=== PATIENT | male | born 1950 | race Caucasian/White ===

== ENCOUNTER 2017-05-31 17:10 | Emergency (ER) | payer MEDICARE, OTHER ==
[2017-05-31 17:19] VITALS: BP 118/70
--- NOTE | 2017-05-31 17:46 | EDM.PDOC ---
ED HPI GENERAL MEDICAL PROBLEM - General Chief Complaint: Syncope Stated Complaint: [facility] Time Seen by Provider: 05/31/17 17:27 Source of Information: Reports: Patient History Limitations: Reports: No Limitations - History of Present Illness INITIAL COMMENTS - FREE TEXT/NARRATIVE: Patient is a 67-year-old male with a history of coronary artery disease with CABG 4 in 2012 who presents to the ED with recent complaint of dizziness, feeling warm, and presyncopal episode. Patient states he was outside in [place] most of the afternoon and attended a concernt later in the afternoon. Patient was sitting in the bleachers for approximate one hour prior to a concert. Patient states he started feeling warm thus walked up the stairs when he became dizzy and almost passed out. Once he layed down patient was found to be diaphoretic with no chest pain or shortness of breath. EMS was contacted and IV was initiated with IV bolus of NS. Upon arrival to the ED patient is asymptomatic. He is questioning if he was dehydrated and became overheated. Again at no time has he had chest pain or shortness of breath, palpitations, change in vision, headache, N/T to extremities, or weakness or any additional complaints. Past medical history: Coronary disease, MD, hypertension, hyponatremia, vitamin B-12 deficiency Current medications include Crestor, Zetia, baby aspirin, fish oil, vitamin B12 , Norvasc, and Zestril - Related Data Allergies Allergy/AdvReac Type Severity Reaction Status Date / Time Penicillins Allergy Cannot Verified 05/31/17 17:19 Remember Home Meds: Home Meds Aspirin 81 mg PO BRK 05/31/17 [History] Cyanocobalamin (Vitamin B-12) [Vitamin B-12] 2,000 mcg PO DAILY 05/31/17 [ History] Ezetimibe [Zetia] 10 mg PO DAILY 05/31/17 [History] Fish Oil/[place]-3 Fatty Acids [Fish Oil 1,000 MG] 1 cap PO DAILY 05/31/17 [ History] amLODIPine [Norvasc] 10 mg PO BEDTIME 05/31/17 [History] amLODIPine/Benazepril [Lotrel 5-20 MG] 1 cap PO DAILY 05/31/17 [History] Past Medical History Cardiovascular History: Reports: Bypass, Hypertension Other Cardiovascular History: quad bypass 4 years ago Musculoskeletal History: Reports: Back Pain, Chronic - Past Surgical History Cardiovascular Surgical History: Reports: Coronary Artery Bypass Musculoskeletal Surgical History: Reports: Other (See Below) Other Musculoskeletal Surgeries/Procedures:: cervical spine fusion Social & Family History - Tobacco Use Smoking Status *Q: Former Smoker Used Tobacco, but Quit: Yes Month Tobacco Last Used: 10 years ago Second Hand Smoke Exposure: No - Caffeine Use Caffeine Use: Reports: Coffee - Recreational Drug Use Recreational Drug Use: No ED ROS GENERAL - Review of Systems Review Of Systems: See Below Constitutional: Reports: Malaise, Weakness, Fatigue, Diaphoresis, Decreased Appetite. Denies: Fever, Chills Respiratory: Denies: Shortness of Breath, Cough, Sputum Cardiovascular: Denies: Chest Pain, Dyspnea on Exertion, Lightheadedness, Palpitations, Syncope GI/Abdominal: Denies: Abdominal Pain, Distension, Nausea, Vomiting : Denies: Dysuria Musculoskeletal: Denies: Neck Pain, Shoulder Pain, Arm Pain, Back Pain Skin: Reports: No Symptoms Neurological: Reports: Dizziness. Denies: Confusion, Headache, Numbness, Pre- Existing Deficit, Syncope, Tingling, Difficulty Walking, Weakness, Gait Disturbance ED EXAM, GENERAL - Physical Exam Exam: See Below Exam Limited By: No Limitations General Appearance: Alert, WD/WN, No Apparent Distress Eye Exam: Bilateral Eye: EOMI, PERRL Ears: Hearing Grossly Normal Nose: Normal Inspection Throat/Mouth: Normal Voice, No Airway Compromise Neck: Normal Inspection, Supple Respiratory/Chest: No Respiratory Distress, Lungs Clear, Normal Breath Sounds, No Accessory Muscle Use, Chest Non-Tender Cardiovascular: Normal Peripheral Pulses, Regular Rate, Rhythm, No Murmur, Other (STERNOTOMY scar from previous CABG 2012.) Peripheral Pulses: 2+: Radial (L), Radial (R) GI/Abdominal: Normal Bowel Sounds, Soft, Non-Tender, No Organomegaly, No Distention, No Abnormal Bruit, No Mass Extremities: Normal Inspection, Normal Range of Motion, Non-Tender, No Pedal Edema, Normal Capillary Refill Neurological: Alert, Oriented, CN II-XII Intact, Normal Cognition, No Motor/ Sensory Deficits Psychiatric: Normal Affect, Normal Mood Skin Exam: Warm, Dry, Intact, Normal Color, No Rash Course - Vital Signs Last Recorded V/S: Last Vital Signs Temp 99 F 05/31/17 17:16 Pulse 73 05/31/17 17:16 Resp 17 05/31/17 17:16 BP 118/70 05/31/17 17:16 Pulse Ox 94 L 05/31/17 17:16 Orthostatic Blood Pressure [ 119/75 Standing] Orthostatic Blood Pressure [ 122/70 Sitting] Orthostatic Blood Pressure [ 110/78 Supine] - Orders/Labs/Meds Orders: Active Orders 24 hr Category Date Time Status EKG Documentation Completion [RC] STAT Care 05/31/17 17:40 Active Orthostatic Vital Signs [RC] ASDIRECTED Care 05/31/17 17:42 Active CXR [Chest 1V Frontal] [CR] Stat Exams 05/31/17 17:41 Taken Labs: Laboratory Tests 05/31/17 05/31/17 05/31/17 Range/Units 17:55 17:55 17:55 WBC 13.17 H (4.23-9.07) K/mm3 RBC 4.40 L (4.63-6.08) M/mm3 Hgb 13.8 (13.7-17.5) gm/L Hct 40.7 (40.1-51.0) % MCV 92.5 H (79.0-92.2) fl MCH 31.4 (25.7-32.2) pg MCHC 33.9 (32.2-35.5) g/dl RDW Std Deviation 43.6 (35.1-43.9) fL Plt Count 144 L (163-337) K/mm3 MPV 11.6 (9.4-12.3) fl Neut % (Auto) 75.1 H (34.0-67.9) % Lymph % (Auto) 15.0 L (21.8-53.1) % [place] % (Auto) 8.7 (5.3-12.2) % Eos % (Auto) 0.5 L (0.8-7.0) Baso % (Auto) 0.5 (0.1-1.2) % Neut # (Auto) 9.91 H (1.78-5.38) K/mm3 Lymph # (Auto) 1.98 (1.32-3.57) K/mm3 [place] # (Auto) 1.14 H (0.30-0.82) K/mm3 Eos # (Auto) 0.06 (0.04-0.54) K/mm3 Baso # (Auto) 0.06 (0.01-0.08) K/mm3 PT 11.8 (8.0-13.0) SECONDS INR 1.08 APTT (22-36) SECONDS Sodium 142 (136-145) mEq/L Potassium 3.8 (3.5-5.1) mEq/L Chloride 108 H (98-107) mEq/L Carbon Dioxide 25 (21-32) mEq/L Anion Gap 12.8 (5-15) BUN 15 (7-18) mg/dL Creatinine 1.1 (0.7-1.3) mg/dL Est Cr Clr Drug Dosing 64.27 mL/min Estimated GFR (MDRD) > 60 (>60) mL/min BUN/Creatinine Ratio 13.6 L (14-18) Glucose 114 (80-115) mg/dL Calcium 8.5 (8.5-10.1) mg/dL Total Bilirubin 0.7 (0.2-1.0) mg/dL AST 24 (15-37) U/L ALT 43 (16-63) U/L Alkaline Phosphatase 50 (46-116) U/L Troponin I < 0.017 (0.00-0.056) ng/mL Total Protein 7.2 (6.4-8.2) g/dl Albumin 3.7 (3.4-5.0) g/dl Globulin 3.5 gm/dL Albumin/Globulin Ratio 1.1 (1-2) 05/31/17 Range/Units 17:55 WBC (4.23-9.07) K/mm3 RBC (4.63-6.08) M/mm3 Hgb (13.7-17.5) gm/L Hct (40.1-51.0) % MCV (79.0-92.2) fl MCH (25.7-32.2) pg MCHC (32.2-35.5) g/dl RDW Std Deviation (35.1-43.9) fL Plt Count (163-337) K/mm3 MPV (9.4-12.3) fl Neut % (Auto) (34.0-67.9) % Lymph % (Auto) (21.8-53.1) % [place] % (Auto) (5.3-12.2) % Eos % (Auto) (0.8-7.0) Baso % (Auto) (0.1-1.2) % Neut # (Auto) (1.78-5.38) K/mm3 Lymph # (Auto) (1.32-3.57) K/mm3 [place] # (Auto) (0.30-0.82) K/mm3 Eos # (Auto) (0.04-0.54) K/mm3 Baso # (Auto) (0.01-0.08) K/mm3 PT (8.0-13.0) SECONDS INR APTT 24 (22-36) SECONDS Sodium (136-145) mEq/L Potassium (3.5-5.1) mEq/L Chloride (98-107) mEq/L Carbon Dioxide (21-32) mEq/L Anion Gap (5-15) BUN (7-18) mg/dL Creatinine (0.7-1.3) mg/dL Est Cr Clr Drug Dosing mL/min Estimated GFR (MDRD) (>60) mL/min BUN/Creatinine Ratio (14-18) Glucose (80-115) mg/dL Calcium (8.5-10.1) mg/dL Total Bilirubin (0.2-1.0) mg/dL AST (15-37) U/L ALT (16-63) U/L Alkaline Phosphatase (46-116) U/L Troponin I (0.00-0.056) ng/mL Total Protein (6.4-8.2) g/dl Albumin (3.4-5.0) g/dl Globulin gm/dL Albumin/Globulin Ratio (1-2) - Re-Assessments/Exams Free Text/Narrative Re-Assessment/Exam: Peripheral IV started by ambulance service with a bolus of fluid. Initial labs and studies include CBC, chem 14, PTT/INR, PTT, troponin, chest x-ray one view, orthostatic vital signs, and EKG. EKG sinus rhythm at a rate of 69, no acute ST changes noted. 05/31/17 18:45 Labs reviewed: Sodium 142, potassium 3.8, CO2 25, anion gap is 12.8, creatinine 1.1, troponin less than 0.017, WBCs 13.17, hemoglobin is 13.8, platelet count 144, neutrophil percent is 75.1, and neutrophil number is 9.91. CXR: Did not reveal any acute abnormalities. Reviewed with Dr. Bullock. Orthostatic vitals were negative. Patient had no complaints with standing. He was ready to be discharged home. Instructions provided as documented. Departure - Departure Time of Disposition: 18:53 Disposition: Home, Self-Care 01 Condition: Good Clinical Impression: Pre-syncope, Orthostatic dizziness Heat exhaustion Qualifiers: Encounter type: initial encounter Qualified Code(s): T67.5XXA - Heat exhaustion , unspecified, initial encounter Instructions: Near-Syncope, [id number], Dehydration, Adult, [id number] Referrals: PCP,Not In Area [Primary Care Provider] - Forms: ED Department Discharge Additional Instructions: Continue to push the fluids, eat balance diet, and ensure adequate rest. Refrain from excessive time in the heat. Take all home medications as prescribed. IF you should develop any new or worsening symptoms please return to the E.D. - My Orders Last 24 Hours: My Active Orders 05/31/17 17:40 EKG Documentation Completion [RC] STAT 05/31/17 17:41 CXR [Chest 1V Frontal] [CR] Stat 05/31/17 17:42 Orthostatic Vital Signs [RC] ASDIRECTED - Assessment/Plan Last 24 Hours: My Active Orders 05/31/17 17:40 EKG Documentation Completion [RC] STAT 05/31/17 17:41 CXR [Chest 1V Frontal] [CR] Stat 05/31/17 17:42 Orthostatic Vital Signs [RC] ASDIRECTED
--- NOTE | 2017-06-01 17:55 | CR ---
Chest: Portable view of the chest was obtained. Comparison: No previous study. Heart size and mediastinum are normal. Sternotomy is noted. Minimal atelectasis is noted within the left base. Lungs otherwise are clear. Mild degenerative spurring is seen within the spine. Impression: 1. Incidental findings. Nothing acute is appreciated on portable chest x-ray. Diagnostic code #2
== END 2017-05-31 19:02 | disposition home or self-care (01) ==
LOC: JD.ED 17:10
DX: T67.5XXA Heat exhaustion, unspecified, initial encounter (principal); R55 Syncope and collapse; I10 Essential (primary) hypertension; I25.810 Atherosclerosis of coronary artery bypass graft(s) without angina pectoris; I25.2 Old myocardial infarction; Z95.1 Presence of aortocoronary bypass graft; Z98.1 Arthrodesis status; Z87.891 Personal history of nicotine dependence; Z79.899 Other long term (current) drug therapy; Z88.0 Allergy status to penicillin
CPT/HCPCS: 36415; 71010; 71010-26; 80053; 84484; 85025; 85610; 85730; 93005; 99284; 99285-25